=== PATIENT | male | born 1955 | race Caucasian/White ===

== ENCOUNTER 2018-06-22 13:45 | Outpatient (REF) | payer OTHER, SELFPAY ==
[2018-06-22 20:54] LABS: Anion Gap 11.1 mmol/L (3-11); BUN 41 mg/dL (7-18); CO2 26.9 mmol/L (21.0-32.0); CREATININE 1.61 mg/dL (0.70-1.30); Calcium 10.2 mg/dL (8.5-10.1); Chloride 104 mmol/L (98-107); Estimated GFR 43.56 (mL/min/1.73m2); Glucose 89 mg/dL (70-100); Potassium 3.9 mmol/L (3.5-5.1); Sodium 142 mmol/L (136-145)
== END 2018-06-22 14:05 ==
LOC: NCHCN 13:45
PROVIDERS: PCP Internal Medicine; Visit Provider Nurse Practitioner Family
DX: I50.9 Heart failure, unspecified (principal); I10 Essential (primary) hypertension
CPT/HCPCS: 80048

== ENCOUNTER 2018-07-27 12:38 | Outpatient (REF) | payer OTHER, SELFPAY ==
[2018-07-27 22:06] LABS: Anion Gap 8.1 mmol/L (3-11); BUN 27 mg/dL (7-18); CO2 28.9 mmol/L (21.0-32.0); CREATININE 1.49 mg/dL (0.70-1.30); Calcium 10.6 mg/dL (8.5-10.1); Chloride 107 mmol/L (98-107); Estimated GFR 47.63 (mL/min/1.73m2); Glucose 93 mg/dL (70-100); Sodium 144 mmol/L (136-145)
== END 2018-07-27 12:58 ==
LOC: NCHCN 12:38
PROVIDERS: PCP Internal Medicine; Visit Provider Nurse Practitioner Family
DX: I50.9 Heart failure, unspecified (principal); I10 Essential (primary) hypertension; I25.10 Atherosclerotic heart disease of native coronary artery without angina pectoris
CPT/HCPCS: 80048

== ENCOUNTER 2018-08-03 18:37 | Emergency (ER) | payer OTHER, MEDICAID, SELFPAY ==
[2018-08-03] VITALS (53 sets, daily range): BP systolic 107–154; BP diastolic 54–91; PULSE 52–66; RESP 10–24; TEMP 36.6; O2SAT 92–97
--- NOTE | 2018-08-03 18:48 | W.ED.GENAD ---
Discharge Plan Disposition Patient Disposition: STILL A PATIENT Condition: Improving Discharge Details Chief Complaint: Chest Pain Clinical Impression: Acute dehydration Primary Care Provider: David Mantilla ED Provider: Luis Godinez Home Meds and New Rx's Prescriptions: Continue aspirin [Aspir-81] 81 mg Tablet,Delayed Release (Dr/Ec) 81 mg PO DAILY RF: 0 atorvastatin 80 mg Tablet 80 mg PO DAILY RF: 0 carvedilol 6.25 mg Tablet 1 dose PO BID RF: 0 torsemide 20 mg Tablet 20 mg PO DAILY RF: 0 nifedipine 60 mg Tablet Extended Release 24hr 60 mg PO DAILY RF: 0 lisinopril 40 mg Tablet 40 mg PO DAILY RF: 0 ticagrelor [Brilinta] 90 mg Tablet 90 mg PO BID RF: 0 Discharge Instructions Instructions: Dehydration (ED) Additional Instructions: Return if you develop chest pain, worsening difficulty breathing, or any other acute concerns. We will ask our care management team to assist you in establishing cardiology care at [facility]. Home to rest this evening. Continue all regular medications. Medical Decision Making 63-year-old male former smoker with a history of coronary artery disease status post NE in June and placement of 2 percutaneous stents, presents from home with a few hours of generalized weakness with associated lightheadedness and palpitations. He did not have a syncopal event. He denies chest pain. States he 's been taking his medications including Brilanta, ASA, Carvedilol, Lisinopril, Nifedipine. He arrives with a temperature of 36, pulse 55, blood pressure 134/70 in no acute distress. His EKG is abnormal with anterolateral twave inversions. Comparisons requested from [facility] where patient was admitted in June. Placed on monitoring and evaluation advisor, iv placed. I obtained and reviewed records from the [facility]. EKG dated June 13, 2018 at 1304 hrs. and 1849 hrs. shows a similar pattern of T wave inversions in leads I, aVL, V4 through V6 without significant change today. A copy of this EKG was scanned into the [facility] medical record. [facility] ecords note that the patient had percutaneous stents placed into D1 and D2 during his admission in June 2018. Echocardiogram during the June 2018 visit showed moderate LVH with LV ejection fraction of 30-35%. Diagnostics reveal elevated BUN and creatinine of 36/1.6. BNP is 346 and troponin is negative. CXR unremarkable. Patient mildly dehydrated which would explain some of his symptoms of lightheadedness. Given 250 cc normal saline fluid. Patient observed and repeat troponin obtained. Will sign out to Dr. Oliva pending this result. If negative would anticipate discharge home, continue regular medications, and the patient requests follow-up with [facility] cardiology rather than Dr Giang at [facility], as patient has moved from [place] to [facility]. ECG Data Attestation: I personally reviewed and interpreted this ECG (s) as follows: Prior ECG tracings: not available for review Interpretation: sinus bradycardia rate 56, 1st deg av block. T wave inversions I, aVL, V4-[address] depression in V5-6 HPI General Mode of arrival: ambulatory. Date/Time Provider Initiated Documentation: 08/03/18 18:37. Limitations to Documentation: no limitations. Information obtained by: patient. History of Present Illness 63 year old M presents to the emergency department with the chief complaint of Lightheadedness, palpitations, shortness of breath, described as moderate, Quality is described as constant, and is localized to the chest. Patient reports no radiation. Patient started experiencing this hour(s) and it has been constant. No relieving factors improve symptom(s), No exacerbating factors reported . Patient notes shortness of breath and weakness; denies chest pain and syncope. HPI Narrative: 63-year-old male who states that in June of this year he suffered an acute NE and had 2 percutaneous stents placed at the [facility]. He states to me that over the past 2-3 weeks he has had intermittent episodes of lightheadedness associated with palpitations and shortness of breath. These episodes last minutes to up to 1 hour, do not appear to have clear inciting or provoking factors. This evening he had increased sensation of lightheadedness and palpitations with mild shortness of breath while at rest. It was persistent and drove him to seek evaluation in the ER. Denies to me feeling chest pain. He states that he has otherwise recently been well Related Data Home Medications Medication Instructions Recorded Confirmed aspirin [Aspir-81] 81 mg PO DAILY 08/03/18 08/03/18 atorvastatin 80 mg PO DAILY 08/03/18 08/03/18 carvedilol 1 dose PO BID 08/03/18 08/03/18 lisinopril 40 mg PO DAILY 08/03/18 08/03/18 nifedipine 60 mg PO DAILY 08/03/18 08/03/18 ticagrelor [Brilinta] 90 mg PO BID 08/03/18 08/03/18 torsemide 20 mg PO DAILY 08/03/18 08/03/18 Allergies Allergy/AdvReac Type Severity Reaction Status Date / Time No Known Allergies Allergy Unverified 08/03/18 18:58 Review of Systems Review of Systems 8 systems reviewed and otherwise negative Exam Narrative Exam Narrative: GEN: awake, alert, oriented 3. Pleasant, well groomed, interactive. HEAD: Normocephalic, atraumatic ENT: Mucous membranes moist, oropharynx unremarkable, External ear exam unremarkable EYES: PERRL, EOMI NECK: Full ROM, no ISABEL, no menigismus CHEST/RESP: Nontender, clear to auscultation bilateral, no wheeze/rhonchi/rales CARDIOVASCULAR: Bradycardic, no murmur, rub mao. 2+ Rad pulse bilateral ABDOMEN: Soft, nontender, no mass. +Bowel sounds EXT: Full ROM, no edema, no rash. L leg BKA and prosthesis Neuro: Grossly normal neurologic exam, conversant, interactive. Psych: Speech fluent, thoughts congruent, affect normal
--- NOTE | 2018-08-03 19:02 | DI.RAD_ITS ---
SYMPTOM/DIAGNOSIS: SOB, HX CAD PORTABLE SEMI-ERECT CHEST: There are no prior comparison exams. The heart size is within normal limits. The aorta is tortuous. Leads over lie the chest. The lungs are not well inflated. No focal infiltrate, effusion or pulmonary edema is seen. IMPRESSION: No acute abnormality.
[2018-08-03] MEDS: Normal Saline 1,000 ML 125 ML IV (19:13)
[2018-08-03 19:44] LABS: Abs Immature Grans 0.03 k/cumm (0.0-0.09); Absolute Basophil Count 0.06 k/cumm (0.0-0.2); Absolute Eosinophil Count 0.35 k/cumm (0.0-0.7); Absolute Lymphocyte Count 1.83 k/cumm (1.2-3.4); Absolute Monocyte Count 0.71 k/cumm (0.11-0.7); Absolute Neutrophil Count 7.07 k/cumm (1.2-6.7); Basophils % 0.6; Eosinophils % 3.5; HCT 42.9 % (40.0-50.0); HGB 13.9 g/dL (13.5-17.5); Immature Grans % 0.3; Lymphocytes % 18.2; Mean Corp. HGB Concentration 32.4 g/dL (32.0-36.0); Mean Corpuscular Hemoglobin 24.6 pg (27.0-33.0); Mean Corpuscular Volume 76.1 fL (80-95); Mean Platelet Volume 10.9 fL (8.0-11.0); Monocytes % 7.1; Neutrophils % 70.3; Platelet Count 189 x1000/uL (130-400); RBC 5.64 m/cumm (4.50-6.00); RBC Distribution Width 14.7 % (11.8-14.1); White Blood Cell Count 10.05 k/cumm (4.4-10.8)
--- NOTE | 2018-08-03 19:52 | DI.VRAD_ITS ---
EXAM: XR Chest, 1 View EXAM DATE/TIME: 08/03/2018 7:04 PM CLINICAL HISTORY: 63 years old, male; Signs and symptoms; Shortness of breath; Patient HX: SOB, HX cad TECHNIQUE: XR of the chest, 1 view. COMPARISON: No relevant prior studies available. FINDINGS: Lungs: Unremarkable. No consolidation. Pleural space: Unremarkable. No pleural effusion. No pneumothorax. Heart/Mediastinum: Unremarkable. No cardiomegaly. Vasculature: Aorta is moderately tortuous. Bones/joints: Mild scoliosis, thoracolumbar spine. IMPRESSION: No acute findings. Lungs are clear. Dictated and Authenticated by: Steven Wolf MD. Ordering:ANTOINE WILD MD
[2018-08-03 19:55] LABS: ALT 38 U/L (12-78); AST 25 U/L (15-37); Albumin 3.7 g/dL (3.4-5.0); Alkaline Phosphatase 104 U/L (46-116); Anion Gap 9.3 mmol/L (3-11); BUN 36 mg/dL (7-18); Bilirubin, Total 0.4 mg/dL (0.2-1.0); CO2 27.7 mmol/L (21.0-32.0); CREATININE 1.61 mg/dL (0.70-1.30); Calcium 10.6 mg/dL (8.5-10.1); Chloride 103 mmol/L (98-107); Estimated GFR 43.56 (mL/min/1.73m2); Glucose 103 mg/dL (70-100); INR 1.1 (1.0-3.5); Magnesium 1.9 mg/dL (1.8-2.4); NT-proBNP 364 pg/mL; PTT Activated 27.9 sec (21.0-31.4); Potassium 3.4 mmol/L (3.5-5.1); Prothrombin Time 10.4 sec (9.3-10.8); Sodium 140 mmol/L (136-145); Total Protein 8.1 g/dL (6.4-8.2); Troponin I 0.02 ng/mL (0.00-0.06)
[2018-08-03] MEDS: Normal Saline 1,000 ML 250 ML IV (20:11)
[2018-08-03] MEDS: Normal Saline Flush 10 ML SYR IVP (22:41)
[2018-08-03 22:59] LABS: Troponin I 0.02 ng/mL (0.00-0.06)
== END 2018-08-03 23:13 | disposition still patient (30) ==
PROVIDERS: Emergency Provider Emergency Medicine; PCP Internal Medicine
DX: E86.0 Dehydration (principal); R53.1 Weakness; R00.2 Palpitations; I25.10 Atherosclerotic heart disease of native coronary artery without angina pectoris; Z95.5 Presence of coronary angioplasty implant and graft; I10 Essential (primary) hypertension
CPT/HCPCS: 36415; 80053; 93005; 96360; 96361; 99284; 71045; 83735; 83880; 84484; 85025; 85610; 85730; 93010

== ENCOUNTER → 2018-08-05 11:35 | Outpatient (BNVA) | payer OTHER, MEDICAID, SELFPAY | PROVIDERS: PCP Internal Medicine; Visit Provider Student in an Organized Health Care Education/Training Program | DX: R69 Illness, unspecified (principal) ==

== ENCOUNTER 2018-08-05 12:15 | Outpatient (CLI) | payer OTHER, MEDICAID, SELFPAY ==
--- NOTE | 2018-08-10 10:08 | HOLTER_ITS ---
DATE OF DICTATION: August 10, 2018 Baseline rhythm sinus. Rare single PAC. No SVT or atrial fibrillation. Very frequent single PVC, 7441 total, 5.2% of total beat. 457 couplet, 76 triplet. 69 runs of non-s ustained ventricular tachycardia/idioventricular rhythm, longest 100-beat duration, fastest 155 bpm. Nocturnal heart rates as low as 25-30 bpm, probably sinus bradycardia, diminutive P-waves. No symptoms. Average heart rate 52 bpm, range 40-89 bpm.
== END 2018-08-05 12:35 ==
PROVIDERS: PCP Internal Medicine; Visit Provider Student in an Organized Health Care Education/Training Program
DX: R00.2 Palpitations (principal); I25.2 Old myocardial infarction; I49.3 Ventricular premature depolarization; I47.2 Ventricular tachycardia; R00.1 Bradycardia, unspecified; I25.10 Atherosclerotic heart disease of native coronary artery without angina pectoris; E78.5 Hyperlipidemia, unspecified; I50.9 Heart failure, unspecified; I11.0 Hypertensive heart disease with heart failure
CPT/HCPCS: 99245; 93225

== ENCOUNTER 2018-08-07 13:20 | Outpatient (CLI) | payer OTHER, MEDICAID, SELFPAY | END 2018-08-07 13:40 | PROVIDERS: PCP Internal Medicine; Visit Provider Internal Medicine | DX: R00.2 Palpitations (principal); I25.2 Old myocardial infarction; I49.3 Ventricular premature depolarization; I47.2 Ventricular tachycardia; R00.1 Bradycardia, unspecified | CPT/HCPCS: 93226 ==

== ENCOUNTER 2018-08-10 09:22 | Outpatient (CLI) | payer OTHER, MEDICAID, SELFPAY | END 2018-08-10 09:42 | PROVIDERS: PCP Internal Medicine; Referring Provider Student in an Organized Health Care Education/Training Program; Visit Provider Internal Medicine Interventional Cardiology | DX: R00.2 Palpitations (principal); I25.2 Old myocardial infarction; I49.3 Ventricular premature depolarization; I47.2 Ventricular tachycardia; R00.1 Bradycardia, unspecified | CPT/HCPCS: 93227 ==

== ENCOUNTER 2018-08-19 00:01 | Outpatient (CLI) | payer OTHER, MEDICAID, SELFPAY ==
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
[2018-08-19] MEDS: Regadenoson 0.4 MG/5 ML SYR IVP (10:45)
== END 2018-08-19 00:21 ==
PROVIDERS: PCP Internal Medicine; Visit Provider Student in an Organized Health Care Education/Training Program
DX: I50.9 Heart failure, unspecified (principal); I25.10 Atherosclerotic heart disease of native coronary artery without angina pectoris; I42.0 Dilated cardiomyopathy; I25.2 Old myocardial infarction; R00.2 Palpitations; I10 Essential (primary) hypertension; E78.5 Hyperlipidemia, unspecified
CPT/HCPCS: 78452; 93016; 93018; 93017; J2785

== ENCOUNTER 2018-09-18 00:05 | Outpatient (CLI) | payer OTHER, MEDICAID, SELFPAY ==
--- NOTE | 2018-09-18 08:51 | DI.RAD_ITS ---
SYMPTOM/DIAGNOSIS: CHF, I50.9 PA AND LATERAL CHEST: Comparison is made with 08/03/18. The heart is enlarged and the aorta is tortuous, unchanged. There are multiple left rib fractures. The lungs appear clear. No infiltrate, effusion or pulmonary edema is seen. Degenerative disc changes are seen in the spine. IMPRESSION: No acute abnormality.
[2018-09-18 10:06] LABS: HCT 46.3 % (40.0-50.0); Mean Corp. HGB Concentration 32.4 g/dL (32.0-36.0); Mean Corpuscular Hemoglobin 25.2 pg (27.0-33.0); Mean Corpuscular Volume 77.8 fL (80-95); Platelet Count 213 x1000/uL (130-400); RBC 5.95 m/cumm (4.50-6.00); RBC Distribution Width 16.1 % (11.8-14.1); White Blood Cell Count 10.71 k/cumm (4.4-10.8)
[2018-09-18 11:12] LABS: ALT 33 U/L (12-78); AST 26 U/L (15-37); Alkaline Phosphatase 107 U/L (46-116); Anion Gap 9.9 mmol/L (3-11); BUN 33 mg/dL (7-18); Bilirubin, Total 0.9 mg/dL (0.2-1.0); CO2 29.1 mmol/L (21.0-32.0); CREATININE 1.96 mg/dL (0.70-1.30); Calcium 11.3 mg/dL (8.5-10.1); Chloride 103 mmol/L (98-107); Cholesterol 142 mg/dL (50-200); Estimated GFR 34.71 (mL/min/1.73m2); Glucose 91 mg/dL (70-100); HDL Cholesterol 33 mg/dL (40-60); LDL CHOLESTEROL 83 mg/dL (<100); Potassium 4.1 mmol/L (3.5-5.1); Sodium 142 mmol/L (136-145); TSH 1.19 uIU/mL (0.358-3.74); Total Protein 7.8 g/dL (6.4-8.2); Triglyceride 157 mg/dL (30-150)
[2018-09-18 11:31] LABS: NT-proBNP 126 pg/mL
== END 2018-09-18 00:25 ==
PROVIDERS: PCP Internal Medicine; Visit Provider Student in an Organized Health Care Education/Training Program
DX: I50.20 Unspecified systolic (congestive) heart failure (principal); I25.10 Atherosclerotic heart disease of native coronary artery without angina pectoris; I51.7 Cardiomegaly; S22.42XD Multiple fractures of ribs, left side, subsequent encounter for fracture with routine healing; R00.2 Palpitations; X58.XXXD Exposure to other specified factors, subsequent encounter; I11.0 Hypertensive heart disease with heart failure
CPT/HCPCS: 36415; 80048; 80061; 80076; 83721; 85027; 99215; 71046; 83735; 83880; 84443

== ENCOUNTER 2019-01-18 15:47 | Outpatient (REF) | payer OTHER, MEDICAID, SELFPAY ==
[2019-01-18 22:17] LABS: ALT 25 U/L (12-78); AST 21 U/L (15-37); Albumin 3.6 g/dL (3.4-5.0); Alkaline Phosphatase 92 U/L (46-116); Anion Gap 9.5 mmol/L (3-11); BUN 25 mg/dL (7-18); Bilirubin, Total 0.4 mg/dL (0.2-1.0); CO2 27.5 mmol/L (21.0-32.0); Calcium 9.9 mg/dL (8.5-10.1); Chloride 104 mmol/L (98-107); Cholesterol 202 mg/dL (50-200); Estimated GFR 55.75 (mL/min/1.73m2); Glucose 77 mg/dL (70-100); HDL Cholesterol 36 mg/dL (40-60); LDL CHOLESTEROL 143 mg/dL (<100); Potassium 3.5 mmol/L (3.5-5.1); Sodium 141 mmol/L (136-145); Total Protein 7.1 g/dL (6.4-8.2); Triglyceride 122 mg/dL (30-150)
[2019-01-18 22:22] LABS: COMMENT (LAB VIEW ONLY) 98.92 mg/dL; Prot/Crea Ur Ratio 0.86
[2019-01-18 22:43] LABS: Hemoglobin A1C 5.7 % (4.5-6.2)
[2019-01-20 09:37] LABS: PSA, Screening 4.1 ng/ml (0-4.5)
== END 2019-01-18 16:07 ==
LOC: NCHCN 15:47
PROVIDERS: PCP Internal Medicine; Visit Provider Nurse Practitioner Family
DX: I10 Essential (primary) hypertension (principal); E78.5 Hyperlipidemia, unspecified; I25.10 Atherosclerotic heart disease of native coronary artery without angina pectoris; Z12.5 Encounter for screening for malignant neoplasm of prostate; Z13.1 Encounter for screening for diabetes mellitus; E66.9 Obesity, unspecified
CPT/HCPCS: 80053; 80061; 83721; 84153; 82565; 83036; 84156

== ENCOUNTER 2019-01-20 00:07 | Outpatient (CLI) | payer OTHER, MEDICAID, SELFPAY ==
--- NOTE | 2019-01-20 10:30 | MERGE_ITS ---
*[facility]* *[facility]* [address] [place] [address] Date of study: 01/20/2019 Transthoracic Echocardiography M-mode, complete 2D, complete spectral Doppler, and color Doppler *STUDY CONCLUSIONS* Summary: 1. Left ventricle: The cavity size was mildly dilated. Wall thickness was increased in a pattern of severe LVH. Systolic function was severely reduced. The estimated ejection fraction was 25-30%. Diffuse hypokinesis. The septum was severely hypertrophied, 20 mm. Severe hypokinesis of the anteroseptal myocardium. Doppler parameters are consistent with high ventricular filling pressure. No evidence of thrombus. 2. Aortic valve: There was mild regurgitation. 3. Mitral valve: There was mild regurgitation. 4. Left atrium: The atrium was severely dilated. 5. Right ventricle: The cavity size was normal. Wall thickness was normal. Systolic function was normal. 6. Right atrium: The atrium was moderately dilated. 7. Atrial septum: There was a small patent foramen ovale. There was a [id number] shunt. 8. Pulmonic valve: Peak gradient (S): 3.8mm Hg. 9. Pulmonary arteries: Pulmonary systolic pressure was in the range of 30mm Hg to 40mm Hg. 10. Inferior vena cava: The vessel was patent and normal in size. The respirophasic diameter changes were in the normal range (greater than or equal to 50%), consistent with normal central venous pressure. *PATIENT PRESENTATION* Height: 172.7cm ((68in) ) S/D Pressure: 199 / 103 Weight: 94.3kg ((207.6lb) ) BSA: 2.16m^2 Test start time: 10:40 AM. Test stop time: 12:15 PM. CONSULTING David Mantilla PERFORMING Unknown ORDERING Alex Barron REFERRING Alex Barron PERFORMING [facility] BUSPERSON RT PASCALE [place] (R))MARTY *PROCEDURE DATA* Procedure information: The patient was identified by two identifiers. This study was interpreted by [facility]. Pertinent images and digital data are archived for permanent storage and are available for subsequent review. No prior study was available for comparison. Study status: Routine. Transthoracic echocardiography. M-mode, complete 2D, complete spectral Doppler, and color Doppler. A Transthoracic Echocardiogram was performed. Scanning was performed from the parasternal, apical, subcostal, and suprasternal notch acoustic windows. Images were obtained using an [id number] cardiac ultrasound machine. Image quality was adequate. Study completion: The patient tolerated the procedure well. *CARDIAC ANATOMY* Left ventricle: The cavity size was mildly dilated. Wall thickness was increased in a pattern of severe LVH. Systolic function was severely reduced. The estimated ejection fraction was 25-30%. Diffuse hypokinesis. No evidence of thrombus. Regional wall motion abnormalities: Severe hypokinesis of the anteroseptal myocardium. The tissue Doppler parameters were abnormal. Findings consistent with diastolic dysfunction. Doppler parameters are consistent with high ventricular filling pressure. Aortic valve: Mildly thickened, mildly calcified leaflets. Doppler: There was no stenosis. There was mild regurgitation. VTI ratio of LVOT to aortic valve: 0.6. Valve area (VTI): 2.8cm^2. Indexed valve area (VTI): 1.3cm^2/m^2. Peak velocity ratio of LVOT to aortic valve: 0.51. Valve area (Vmax): 2.4cm^2. Indexed valve area (Vmax): 1.1cm^2/m^2. Mean velocity ratio of LVOT to aortic valve: 0.44. Valve area (Vmean): 2cm^2. Indexed valve area (Vmean): 0.9cm^2/m^2. Mean gradient (S): 5.5mm Hg. Peak gradient (S): 9.7mm Hg. Aorta: Aortic root: The aortic root was mildly dilated. Ascending aorta: The ascending aorta was mildly dilated. Mitral valve: Doppler: There was no evidence for stenosis. There was mild regurgitation. Valve area by pressure half-time: 2.6cm^2. Indexed valve area by pressure half-time: 1.2cm^2/m^2. Left atrium: The atrium was severely dilated. Atrial septum: There was a small patent foramen ovale. There was a [id number] shunt. Right ventricle: The cavity size was normal. Wall thickness was normal. Systolic function was normal. Pulmonic valve: Doppler: There was no evidence for stenosis. There was mild regurgitation. Peak gradient (S): 3.8mm Hg. Tricuspid valve: Doppler: There was mild regurgitation. Pulmonary artery: The main pulmonary artery was normal-sized. Pulmonary systolic pressure was in the range of 30mm Hg to 40mm Hg. Right atrium: The atrium was moderately dilated. Pericardium: There was no pericardial effusion. Systemic veins: Inferior vena cava: Well visualized. The vessel was patent and normal in size. The respirophasic diameter changes were in the normal range (greater than or equal to 50%), consistent with normal central venous pressure. Baseline ECG: Bradycardia. Measurements Left ventricle Value Reference LV ID, ED, PLAX (H) 6.3 cm 3.5 - 6.0 LV ID, ES, PLAX (H) 5.4 cm 2.1 - 4.0 LV PW thickness, ED, PLAX 1.6 cm LV end-diastolic volume, 1-p A2C 208 ml LV ejection fraction, 1-p A2C 24 % LV end-diastolic volume, 1-p A4C 202 ml LV ejection fraction, 1-p A4C 29 % LV e', lateral 0.038 m/sec LV E/e', lateral 14 LV e', medial 0.028 m/sec LV E/e', medial 19 LV e', average 0.033 m/sec LV E/e', average 16 Ventricular septum Value Reference IVS thickness, ED, PLAX 2.1 cm LVOT Value Reference LVOT ID, A-P 2.4 cm LVOT area 4.6 cm^2 LVOT peak velocity, S 0.8 m/sec LVOT mean velocity, S 0.49 m/sec LVOT VTI, S 16.3 cm LVOT peak gradient, S 2.5 mm Hg LVOT mean gradient, S 1.2 mm Hg Stroke volume (SV), LVOT DP 76 ml Stroke index (SV/bsa), LVOT DP 35 ml/m^2 Aortic valve Value Reference Aortic valve peak velocity, S 1.6 m/sec Aortic valve mean velocity, S 1.11 m/sec Aortic valve VTI, S 27.0 cm Aortic mean gradient, S 5.5 mm Hg Aortic peak gradient, S 9.7 mm Hg VTI ratio, LVOT/AV 0.6 Aortic valve area, VTI 2.8 cm^2 Velocity ratio, peak, LVOT/AV 0.51 Aortic valve area, peak velocity 2.4 cm^2 Velocity ratio, mean, LVOT/AV 0.44 Aortic valve area, mean velocity 2 cm^2 Aortic valve area/bsa, mean velocity 0.9 cm^2/m^2 Aorta Value Reference Aortic root ID, ED 4.2 cm Ascending aorta ID, A-P, S 3.9 cm Left atrium Value Reference LA ID, A-P, ES 5.0 cm LA ID/bsa, A-P (H) 2.3 cm/m^2 <=2.2 LA area, ES, A4C (H) 29.9 cm^2 8.8 - 23.4 LA area, ES, A2C 28 cm^2 LA volume/bsa, ES, 1-p A4C 58 ml/m^2 LA volume, ES, 2-p 108 ml LA volume/bsa, ES, 2-p 50 ml/m^2 LA/aortic root ratio 1.21 Mitral valve Value Reference Mitral E-wave peak velocity 0.53 m/sec Mitral A-wave peak velocity 0.99 m/sec Mitral deceleration time (H) 296 ms 150 - 230 Mitral pressure half-time 86 ms Mitral E/A ratio, peak 0.54 Mitral valve area, PHT, DP 2.6 cm^2 Pulmonary veins Value Reference Pulmonary vein peak velocity, S 0.56 m/sec Pulmonary vein peak velocity, D 0.2 m/sec Pulmonary vein velocity ratio, peak, 2.8 S/D Tricuspid valve Value Reference Tricuspid regurg peak velocity 2.9 m/sec Tricuspid peak RV-RA gradient 33.8 mm Hg Right atrium Value Reference RA area, ES, A4C (H) 22.5 cm^2 8.3 - 19.5 Pulmonic valve Value Reference Pulmonic peak gradient, S 3.8 mm Hg Legend: (L) and (H) sorin values outside specified reference range. I have personally reviewed the images and have reviewed and edited the reported findings. Electronically signed by Omi Alex MD 01/20/2019 16:38
== END 2019-01-20 00:27 ==
PROVIDERS: PCP Internal Medicine; Visit Provider Student in an Organized Health Care Education/Training Program
DX: I25.10 Atherosclerotic heart disease of native coronary artery without angina pectoris (principal); I50.20 Unspecified systolic (congestive) heart failure; I51.7 Cardiomegaly; I10 Essential (primary) hypertension; I08.0 Rheumatic disorders of both mitral and aortic valves
CPT/HCPCS: 93306

== ENCOUNTER 2019-01-20 02:27 | Outpatient (CLI) | payer OTHER, MEDICAID, SELFPAY ==
--- NOTE | 2019-02-04 11:36 | HOLTER_ITS ---
HOLTER MONITOR DATE OF DICTATION February 04 DATE OF RECORDING January 20, 2019 DATE OF ANALYSIS January 25, 2019 REFERRING PROVIDER Alex Barron M.D. INDICATION Atrial fibrillation. FINDINGS 1. Baseline sinus rhythm with first degree AV block, 48-89 beats per minute, average 63 beats per mi nute. 2. One PAC/29 hours, no SVT, no AF. 3. 359 PVCs/29 hours, 0.4%, 1 couplet, no VT. 4. No significant pauses. 5. No symptoms recorded. Jg Reynoso M.D. CHARLEEN/magdi T - 02/04/2019
== END 2019-01-20 02:47 ==
PROVIDERS: PCP Internal Medicine; Visit Provider Student in an Organized Health Care Education/Training Program
DX: I48.91 Unspecified atrial fibrillation (principal); I49.3 Ventricular premature depolarization
CPT/HCPCS: 93225

== ENCOUNTER 2019-01-25 17:00 | Outpatient (CLI) | payer OTHER, MEDICAID, SELFPAY | END 2019-01-25 17:20 | PROVIDERS: PCP Internal Medicine; Visit Provider Student in an Organized Health Care Education/Training Program | DX: I48.91 Unspecified atrial fibrillation (principal); I49.3 Ventricular premature depolarization | CPT/HCPCS: 93226 ==

== ENCOUNTER 2019-02-03 12:33 | Outpatient (CLI) | payer OTHER, MEDICAID, SELFPAY | END 2019-02-03 12:53 | PROVIDERS: PCP Internal Medicine; Referring Provider Internal Medicine; Visit Provider Internal Medicine Cardiovascular Disease | DX: I48.91 Unspecified atrial fibrillation (principal); I49.3 Ventricular premature depolarization | CPT/HCPCS: 93227 ==

== ENCOUNTER → 2019-03-18 12:57 | Outpatient (BNVA) | payer OTHER, MEDICAID, SELFPAY | PROVIDERS: Visit Provider Student in an Organized Health Care Education/Training Program | DX: I25.10 Atherosclerotic heart disease of native coronary artery without angina pectoris (principal); I50.20 Unspecified systolic (congestive) heart failure; I11.0 Hypertensive heart disease with heart failure; Z87.891 Personal history of nicotine dependence; Z79.02 Long term (current) use of antithrombotics/antiplatelets | CPT/HCPCS: 99215 ==

== ENCOUNTER → 2019-03-31 12:54 | Outpatient (BNVA) | payer OTHER, MEDICAID, SELFPAY | PROVIDERS: Visit Provider Student in an Organized Health Care Education/Training Program | DX: I25.10 Atherosclerotic heart disease of native coronary artery without angina pectoris (principal); I50.20 Unspecified systolic (congestive) heart failure; I11.0 Hypertensive heart disease with heart failure | CPT/HCPCS: 99213 ==

== ENCOUNTER → 2019-04-29 08:00 | Outpatient (BNVA) | payer OTHER, MEDICAID, SELFPAY | PROVIDERS: Referring Provider Nurse Practitioner Family; Visit Provider Urology | DX: N36.8 Other specified disorders of urethra (principal); N52.9 Male erectile dysfunction, unspecified; J44.9 Chronic obstructive pulmonary disease, unspecified; Z79.01 Long term (current) use of anticoagulants; Z87.891 Personal history of nicotine dependence | CPT/HCPCS: 99203; 99214 ==

== ENCOUNTER → 2019-05-26 09:09 | Outpatient (BNVA) | payer OTHER, MEDICAID, SELFPAY | PROVIDERS: PCP Family Medicine; Visit Provider Student in an Organized Health Care Education/Training Program | DX: I25.10 Atherosclerotic heart disease of native coronary artery without angina pectoris (principal); I50.20 Unspecified systolic (congestive) heart failure; I11.0 Hypertensive heart disease with heart failure; J44.9 Chronic obstructive pulmonary disease, unspecified; F17.200 Nicotine dependence, unspecified, uncomplicated | CPT/HCPCS: 99215 ==

== ENCOUNTER 2019-08-10 00:46 | Outpatient (CLI) | payer OTHER, MEDICAID, SELFPAY ==
--- NOTE | 2019-08-10 10:30 | DI.US_ITS ---
APPROVED REPORT EXAM: Comprehensive 2D, Doppler, and color-flow Echocardiogram Patient Location: Out-Patient Buttonhole Maker Hand: Zina Lees RDCS (AE) Rhythm: Bradycardia Indications: CAD HF I50.9 I25.10 CHF Conclusion Left Ventricle : The left ventricle is normal size. Moderate to severe left ventricular hypertrophy. The left ventricular systolic function is normal. The left ventricular ejection fraction is within th e normal range. The basal anteroseptal wall is mildly hypokinetic. The basal inferoseptal wall is mildly hypokinetic. The mid anteroseptal wall is mildly hypokinetic. The mid inferoseptal wall is mildly hypokinetic. The apical anteroseptal wall is mildly hypokinetic. The remainder of the wall segments are normal. There is grade 2 diastolic dysfunction. LVEF is estimated to be 50-55%. Right Ventricle : Right ventricle is mildly dilated. The right ventricular systolic function appears low normal. Atria : Left atrium is severely dilated. Right atrium is moderately dilated. Aortic Valve : Aortic valve is thickened but has adequate excursion. Sclerosis without stenosis Mitral Valve : Mitral valve leaflets are mildly thickened. Trace mitral regurgitation. No evidence of mitral valve stenosis. Tricuspid Valve : The tricuspid valve leaflets are mildly thickened , but open well. Mild tricuspid r egurgitation. Great Vessels : IVC is normal in size and collapses >50% with inspiration. Estimated RVSP is 25-28 m mHg. Compared to echocardiogram dated 01/20/2019: The patient's ejection fraction has recovered to now with in the normal range. There remains some hypokinesis of the ventricular septum. Wall motion Left Ventricle The left ventricle is normal size. The left ventricular systolic function is normal. The left ventric ular ejection fraction is within the normal range. Moderate to severe left ventricular hypertrophy. T he basal anteroseptal wall is mildly hypokinetic. The basal inferoseptal wall is mildly hypokinetic. The mid anteroseptal wall is mildly hypokinetic. The mid inferoseptal wall is mildly hypokinetic. The apical anteroseptal wall is mildly hypokinetic. The remainder of the wall segments are normal. There is grade 2 diastolic dysfunction. LVEF is estimated to be 50-55%. Right Ventricle Right ventricle is mildly dilated. The right ventricular systolic function appears low normal. Atria Left atrium is severely dilated. Right atrium is moderately dilated. Small PFO is noted. Aortic Valve Aortic valve is thickened but has adequate excursion. Sclerosis without stenosis Trace aortic regurgi tation. Mitral Valve Mitral valve leaflets are mildly thickened. No evidence of mitral valve stenosis. Trace mitral regurg itation. Tricuspid Valve The tricuspid valve leaflets are mildly thickened , but open well. Mild tricuspid regurgitation. Pulmonic Valve Pulmonic valve is not well visualized. Mild pulmonic regurgitation. Great Vessels Aortic root is dilated. The ascending aorta is mildly dilated. IVC is normal in size and collapses >5 0% with inspiration. Estimated RVSP is 25-28 mmHg. Pericardium There is no pericardial effusion. 2D Dimensions IVSd 1.70 cm M: 0.6-1.2 LV EDV A2C 110.50 mL PWd 1.45 cm M: 0.6 - 1.2 LV EDV A4C 124.00 mL LVDd 5.30 cm M: 4.2 - 5.8 LA Volume Index A2C 37.97 mL/m2 LVDs 3.80 cm M: 2.5 - 4.0 LA Volume Index A4C 54.52 mL/m2 Aortic Root 4.10 cm M: 3.1 - 3.7 LA Volume Index Biplane 46.49 mL/m2 RA Area A4C 25.31 cm2 LA Area A4C 28.39 cm2 LVOT 2.30 cm (M/F) 1.5-2.5 LA Area A2C 23.19 cm2 Ascending Aorta 3.77 cm M: 2.6 - 3.4 EF AP4 53.47 % LVEF (Teich) 54.18 % EF AP2 54.03 % LVEF (Langley's) 54.17 % M: 52 - 72 EF BP 54.17 % LV Volume 90.52 mL M: 62 - 150 LV Volume Index 44.81 mL/m2 M: 34 - 74 FS 28.25 % LV Diastology E/A Ratio 0.7 MED E' 0.04 (>0.07 m/s) LV E/e MED 15.95 (<14) LAT E' 0.05 (>0.1 m/s) LV E/e LAT 13.35 (<14) Pulm Vein s 0.61 m/s PV S/D Ratio 1.55 Pulm Vein d 0.39 m/s Pulm Vein a 0.35 m/s A-A Duration 179.57 msec Aortic Valve LVOT Area 4.27 cm2 LVOT Peak Arsenio. 1.00 m/s LVOT Mean Arsenio. 0.74 m/s LVOT Peak Gr. 4.20 mmHg SHAHBAZ Vmax Index 1.13 cm2/m2 LVOT Mean Gr. 2.45 mmHg LVOT VTI 0.20 m SHAHBAZ Mean Arsenio. Index 1.23 cm2/m2 AoV Peak Rasenio. 1.92 (0.5-1.3 m/s) AoV Mean Arsenio. 1.27 m/s AO Peak GR. 14.79 mmHg AO Mean GR. 7.19 (<5 mmHg) VTI Ratio 0.57 SHAHBAZ (VTI) 2.44 (2.5-4.5 cm2) SHAHBAZ (VTI) Index 1.21 cm/m2 Mitral Valve MV E Max Arsenio. 0.66 (0.4-1.3 m/s) MV A Velocity 0.95 (0.4-1.3 m/s) E/A Ratio 0.68 MV Decel. Time 258.10 (160-240 msec) MV PHT 74.86 msec MVA PHT 2.90 cm2 Tricuspid Valve TR P. Velocity 2.49 m/s TV Regurg Vmax 2.49 m/s RAP Estimate 3.00 mmHg RVSP 27.85 mmHg TR P. Gradient 24.85 mmHg
== END 2019-08-10 01:06 ==
PROVIDERS: PCP Family Medicine; Visit Provider Student in an Organized Health Care Education/Training Program
DX: I25.10 Atherosclerotic heart disease of native coronary artery without angina pectoris (principal); I50.9 Heart failure, unspecified; I51.7 Cardiomegaly; I50.1 Left ventricular failure, unspecified
CPT/HCPCS: 93306

== ENCOUNTER 2019-12-24 01:28 | Outpatient (CLI) | payer OTHER, MEDICAID, SELFPAY ==
[2019-12-24 12:29] LABS: Abs Immature Grans 0.02 k/cumm (0.0-0.09); Absolute Basophil Count 0.04 k/cumm (0.0-0.2); Absolute Eosinophil Count 0.35 k/cumm (0.0-0.7); Absolute Lymphocyte Count 1.36 k/cumm (1.2-3.4); Absolute Monocyte Count 0.56 k/cumm (0.11-0.7); Absolute Neutrophil Count 5.25 k/cumm (1.2-6.7); Basophils % 0.5; Eosinophils % 4.6; HCT 45.2 % (40.0-50.0); HGB 14.6 g/dL (13.5-17.5); Immature Grans % 0.3 %; Lymphocytes % 17.9; Mean Corp. HGB Concentration 32.3 g/dL (32.0-36.0); Mean Corpuscular Hemoglobin 25.7 pg (27.0-33.0); Mean Corpuscular Volume 79.4 fL (80-95); Mean Platelet Volume 11.9 fL (8.0-11.0); Monocytes % 7.4; Neutrophils % 69.3; Platelet Count 164 x1000/uL (130-400); RBC 5.69 m/cumm (4.50-6.00); RBC Distribution Width 13.9 % (11.8-14.1); White Blood Cell Count 7.58 k/cumm (4.4-10.8)
[2019-12-24 12:47] LABS: Bilirubin Negative (Negative); Blood Negative (Negative); Clarity Clear (Clear); Glucose Negative (Negative); Ketones Negative (Negative); Leukocyte Esterase Negative (Negative); Nitrite Negative (Negative); Specific Gravity 1.025 (1.005-1.025); Urobilinogen 0.2 EU/dL (Up TO 0.2); pH 6.5 (5-8)
[2019-12-24 12:49] LABS: Bacteria Negative HPF (Negative); C & S Indicated? No; Casts Negative LPF (Negative); Crystals Negative HPF (Negative); Epithelial Cells Rare HPF (Negative); Mucus Negative (Negative); RBC 0-2 HPF (0-2); WBC 0-2 HPF (0-5)
[2019-12-24 13:18] LABS: ALT 26 U/L (16-63); AST 23 U/L (15-37); Albumin 3.6 g/dL (3.4-5.0); Alkaline Phosphatase 91 U/L (46-116); Bilirubin, Direct 0.14 mg/dL (0.00-0.20); Bilirubin, Total 0.6 mg/dL (0.2-1.0)
[2019-12-24 13:26] LABS: ALT 26 U/L (16-63); AST 22 U/L (15-37); Albumin 3.6 g/dL (3.4-5.0); Alkaline Phosphatase 93 U/L (46-116); BUN 20 mg/dL (7-18); Bilirubin, Direct 0.14 mg/dL (0.00-0.20); Bilirubin, Total 0.6 mg/dL (0.2-1.0); CREATININE 1.29 mg/dL (0.70-1.30); Calcium 10.2 mg/dL (8.5-10.1); Chloride 109 mmol/L (98-107); Estimated GFR 56.07 (mL/min/1.73m2); Glucose 104 mg/dL (74-106); Magnesium 1.9 mg/dL (1.8-2.4); NT-proBNP 506 pg/mL (<300); Potassium 3.9 mmol/L (3.5-5.1); Sodium 143 mmol/L (136-145)
[2019-12-24 13:41] LABS: Calculated LDL 80 mg/dL (<100); Cholesterol 138 mg/dL (<200); HDL Cholesterol 33 mg/dL (40-60); Triglyceride 129 mg/dL (<150)
== END 2019-12-24 01:48 ==
PROVIDERS: PCP Family Medicine; Visit Provider Student in an Organized Health Care Education/Training Program
DX: I50.9 Heart failure, unspecified (principal); I25.10 Atherosclerotic heart disease of native coronary artery without angina pectoris; E31.9 Polyglandular dysfunction, unspecified; B35.1 Tinea unguium
CPT/HCPCS: 36415; 80048; 80061; 80076; 81003; 81015; 83735; 83880; 85025

== ENCOUNTER 2020-02-01 00:50 | Outpatient (CLI) | payer OTHER, MEDICAID, SELFPAY ==
--- NOTE | 2020-02-01 08:20 | DI.CTLCSR_ITS ---
EXAM: CT CHEST LUNG CANCER SCREEN CLINICAL HISTORY: The patient reportedly has a History of Smoking 30 pack years and presently smokes or has quit the past 15 years. TECHNIQUE: Imaging Protocol: Axial computed tomography images with coronal and sagittal reformatted images were created and reviewed COMPARISON: CR XR CHEST 2V PA LATERAL from 09/18/2018 FINDINGS: Tracheobronchial tree: Patent. Mediastinum and Salma: No dominant adenopathy or fluid collection. Pulmonary parenchyma: No consolidation or dominant measurable mass. There are [id number] emphy sematous and fibrotic changes at the upper lobes.. Lung Nodules: None. Pleura: No effusion or pneumothorax. Heart: The heart is not dilated. Coronary artery calcifications are seen. Aorta: Thoracic aorta non-dilated.Mild calcifications. Upper abdomen: Unremarkable. Bones: Disc osteophytes in the thoracic spine. Soft Tissues: Unremarkable. IMPRESSION: Lung RADS Cat 1 - Negative: No nodules and definitely benign nodules Lung-RADS 1.0 CATEGORIES: Category 0 - Prior chest CT exam(s) being located for comparison. Category 1 - Annual screening in 12 months. No nodules or definitely benign nodules. Category 2 - Annual screening in 12 months. Benign appearance. Nodules with low likelihood of becomin g active cancer. Category 3 - 6-month follow-up. Probably benign. Short-term follow-up suggested. Nodules with low lik elihood of becoming active cancer. Category 4A - 3-month follow-up and CT/PET if >8 mm in size. Suspicious finding. Findings which requi re additional testing. Category 4B - Findings which require additional testing and tissue sampling. Suspicious finding. C Added to Any of the Above - History of prior lung cancer screening. S Added to Any of the Above - Significant unexpected other finding. RADIATION DOSE DELIVERED: 65.03mGy.cm Total DLP DATA REPOSITORY: All CT scans at this facility are submitted to the National Radiology Data Registry (NRDR) Dose Index Registry (DIR) with the [employer] (ACR). RADIATION OPTIMIZATION: All CT scans at this facility use at least one of these dose optimization te chniques: automated exposure control; mA and/or kV adjustment per patient size (includes targeted exa ms where dose is matched to clinical indication); or iterative reconstruction.
== END 2020-02-01 01:10 ==
PROVIDERS: PCP Family Medicine; Visit Provider Family Medicine
DX: Z12.2 Encounter for screening for malignant neoplasm of respiratory organs (principal); Z87.891 Personal history of nicotine dependence; J43.8 Other emphysema
CPT/HCPCS: G0297

== ENCOUNTER 2020-03-16 10:03 | Outpatient (CLI) | payer OTHER, MEDICAID, SELFPAY ==
--- NOTE | 2020-03-16 11:00 | DI.US_ITS ---
EXAM: US LOWER EXTREMITY VENOUS RT CLINICAL HISTORY: new onset pain to RLE; r/o DVT M79.604 PAIN RT LEG. TECHNIQUE: Lower extremity venous ultrasound performed using grayscale, color-flow, and spectral Do ppler analysis. COMPARISON: No exams were available for comparison FINDINGS: The common femoral, femoral and popliteal veins demonstrate normal compressibility, augmentation, and color Doppler. The posterior tibial veins are patent. No saphenous vein thrombosis or other superfi cial venous thrombosis is seen. No hematoma or Valiente's cyst is seen. The femoral artery is noted to be occluded from the common femoral bifurcation through to the poplite al artery. The popliteal artery and distal arteries appear patent. IMPRESSION: Occlusion of the right femoral artery. No evidence of DVT. DATA REPOSITORY:
== END 2020-03-16 10:23 ==
PROVIDERS: PCP Family Medicine; Visit Provider Nurse Practitioner Adult Health
DX: M79.604 Pain in right leg (principal); I74.3 Embolism and thrombosis of arteries of the lower extremities
CPT/HCPCS: 93971

== ENCOUNTER 2020-03-16 12:56 | Emergency (ER) | payer OTHER, MEDICAID, SELFPAY ==
[2020-03-16 13:01] VITALS: BP 172/91; PULSE 67; RESP 18; TEMP 36.6; O2SAT 95
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
[2020-03-16 14:12] LABS: Abs Immature Grans 0.02 k/cumm (0.0-0.09); Absolute Basophil Count 0.03 k/cumm (0.0-0.2); Absolute Eosinophil Count 0.32 k/cumm (0.0-0.7); Absolute Lymphocyte Count 1.27 k/cumm (1.2-3.4); Absolute Neutrophil Count 6.91 k/cumm (1.2-6.7); Basophils % 0.3; Eosinophils % 3.5; HCT 44.4 % (40.0-50.0); HGB 14.4 g/dL (13.5-17.5); Immature Grans % 0.2 %; Lymphocytes % 13.7; Mean Corp. HGB Concentration 32.4 g/dL (32.0-36.0); Mean Corpuscular Hemoglobin 25.5 pg (27.0-33.0); Mean Corpuscular Volume 78.7 fL (80-95); Mean Platelet Volume 10.3 fL (8.0-11.0); Monocytes % 7.6; Neutrophils % 74.7; Platelet Count 187 x1000/uL (130-400); RBC 5.64 m/cumm (4.50-6.00); RBC Distribution Width 14.2 % (11.8-14.1); White Blood Cell Count 9.25 k/cumm (4.4-10.8)
[2020-03-16 14:23] LABS: ALT 16 U/L (16-63); AST 18 U/L (15-37); Albumin 3.6 g/dL (3.4-5.0); Alkaline Phosphatase 81 U/L (46-116); Anion Gap 7.3 mmol/L (3-11); BUN 30 mg/dL (7-18); Bilirubin, Total 0.7 mg/dL (0.2-1.0); CO2 28.7 mmol/L (21.0-32.0); CREATININE 1.68 mg/dL (0.70-1.30); Calcium 10.1 mg/dL (8.5-10.1); Chloride 105 mmol/L (98-107); Estimated GFR 41.34 (mL/min/1.73m2); Glucose 105 mg/dL (74-106); Potassium 3.6 mmol/L (3.5-5.1); Sodium 141 mmol/L (136-145); Total Protein 7.4 g/dL (6.4-8.2)
[2020-03-16 14:27] LABS: Creatine Kinase 78 U/L (39-308)
[2020-03-16 15:12] VITALS: BP 180/83; PULSE 56; RESP 14; TEMP 36.6; O2SAT 96
--- NOTE | 2020-03-16 18:46 | NUR.NOTE ---
referral to care management to f/u with Vascular [place] at [facility] [place]Nursing Note:
--- NOTE | 2020-03-17 09:30 | PDOC.ERCMPRO ---
- If Service Date Differs Date of service: 03/17/20 Time of Service: 09:30 Care Management Progress Note At the request of ED provider, CM coordinates a referral to [facility] [place]. Shakeel is seen in the ED on 03/16/2020 for a femoral artery occlusion.
== END 2020-03-16 15:06 | disposition home or self-care (01) ==
PROVIDERS: Emergency Provider Physician Assistant; PCP Family Medicine
DX: I73.9 Peripheral vascular disease, unspecified (principal); I70.92 Chronic total occlusion of artery of the extremities; I10 Essential (primary) hypertension; J44.9 Chronic obstructive pulmonary disease, unspecified
CPT/HCPCS: 36415; 80053; 82550; 99283; 85025; 99284

== ENCOUNTER → 2020-05-01 13:20 | Outpatient (BNVA) | payer OTHER, MEDICAID, SELFPAY | PROVIDERS: PCP Family Medicine; Visit Provider Urology | DX: R36.1 Hematospermia (principal); N36.8 Other specified disorders of urethra; I11.0 Hypertensive heart disease with heart failure; I50.9 Heart failure, unspecified; J44.9 Chronic obstructive pulmonary disease, unspecified | CPT/HCPCS: 81003; 99213 ==